=== PATIENT | male | born 2000 | race Caucasian/White ===

== ENCOUNTER 2024-07-29 22:42 | Emergency (ER) | payer BC, SELFPAY ==
[2024-07-29 22:58] LABS: Urine Albumin 2+ (Neg - Trace); Urine Bilirubin Negative (Negative); Urine Character Cloudy (Clear); Urine Color Yellow; Urine Glucose Negative (Negative); Urine Ketone Negative (Negative); Urine Leukocyte 1+ (Negative); Urine Nitrite Negative (Negative); Urine Occult Blood 4+ (Negative); Urine Urobilinogen Negative (Neg - 1+)
[2024-07-29 23:06] LABS: Urine Amorphous Seen; Urine Red Blood Cell 50-60 /HPF (0-2); Urine Squamous Cell 0-2 /LPF (Few)
[2024-07-29 23:07] LABS: Urine White Cell 0-2 /HPF (0-5)
[2024-07-29 23:09] LABS: Urine Bacteria Moderate (Negative)
--- NOTE | 2024-07-29 23:25 | ED.GENMED ---
History of Present Illness
General
Chief Complaint: Male Genito-Urinary Symptoms
Time Seen by Provider: 07/29/24 23:25
History of Present Illness
History of Present Illness:
TIME OF INITIAL ENCOUNTER: 11:30 PM
HPI: The patient presents with gross hematuria. This has not caused any urinary retention. Of note, the patient did have a lot of sexual intercourse with his girlfriend recently and also had pain during intercourse last night. He has no flank
pain. He has no fevers. He has no discharge from the meatus but states that his urethra feels inflamed.
EXAM:
GENERAL: Well appearing in no distress
HEENT: Moist oral mucosa
ABDOMEN: Soft with no peritoneal signs, no tenderness, no CVA tenderness
: No testicular tenderness, no epididymal tenderness, no discharge at the meatus
NEUROLOGIC: Excellent strength all extremities, no coordination deficits
PSYCHIATRIC: Appropriate mental status, normal insight and judgement
EXTREMITIES: Nontender, no edema, moves all extremities equally
SKIN: No rash, no lesions
NUMBER AND COMPLEXITY OF PROBLEMS ADDRESSED AT THE ENCOUNTER
� Chronic conditions affecting care: History of prostatitis
� Acute Exacerbation and/or Progression of Chronic Illness: This is an acute problem
� Differential Diagnosis includes: Urethritis, STI; no evidence for torsion/epididymitis based on exam
AMOUNT AND/OR COMPLEXITY OF DATA TO BE REVIEWED AND ANALYZED
� I performed an independent evaluation of and my interpretation is:
EKG:
CT:
X-rays:
Laboratory Studies: Urinalysis shows 4+ blood with no clear evidence of infection
Other: GC chlamydia PCR by urine pending
� Review of other/old records: No old records available for review
� Clinical information was obtained by an independent historian: Sister was present at bedside
� Prescriptions/Medications Considered but not given: Offered and considered empiric treatment for STI however the patient declines and wants to wait on the testing.
� Further testing considered but not performed: No clear indication for CT imaging as the pain appears to be localized to the urethra and he has no CVA tenderness
RISK OF COMPLICATIONS AND/OR MORBIDITY OR MORTALITY OF PATIENT MANAGEMENT
� Social determinants of health affecting care: Lives at home
� Discussion with other providers:
� Escalation of care including admission/observation vs risk of discharge considered: I have relatively low suspicion for STI. Gross and microscopic hematuria noted. He is to follow-up with urology. He has been able to void
with only some small amounts of blood noted at time. His most recent urination showed minimal if any blood.
ANY OTHER UPDATES:
Phy Exam
Physical Exam
Physical Exam:
See HPI
Course
Orders/Labs/Results
Orders:
Orders
07/29/24 22:51
Urinalysis Reflex To Culture Urgent
Date Specimen was Collected: 07/29/24
Time Specimen was Collected: 22:45
Urine Microscopic Reflex Cult Urgent
Urine Culture Urgent
SE Source: U
Specimen Description:
Date Specimen was Collected: 07/29/24
Time Specimen was Collected: 22:45
07/29/24 23:38
Add On- LAB Urgent
Tests Added?: GC/Chlam by PCR - urine
Abnormal Lab Results
07/29/24
22:51
Ur Occult Blood Reflex 4+ A
(Negative)
Leukocyte Esterase Rfl 1+ A
(Negative)
Urine RBC 50-60 A /HPF
(0-2)
Urine Bacteria (Reflex) Moderate A
(Negative)
Urine Albumin (Reflex) 2+ A
(Neg - Trace)
Vital Signs
Blood pressure: 120/60
Initial and Last Documented VS:
Initial Vital Signs
Temp Pulse Resp Pulse Ox
37.0 C 76 16 99
07/29/24 22:43 07/29/24 22:43 07/29/24 22:43 07/29/24 22:43
Last Documented Vital Signs
Temp Pulse Resp BP Pulse Ox
37.0 C 76 16 120/60 99
07/29/24 22:43 07/29/24 22:43 07/29/24 22:43 07/29/24 23:46 07/29/24 22:43
*Critical Care Note
Total Time (30-74mins, 75-104mins- exclusive of procedures): Not Applicable
ED Attending Note
-
Portions of this chart may have been created with voice recognition software.� Occasional wrong word or��sound alike� substitutions may have occurred due to the inherent limitations of voice recognition software.
Discharge Plan
Departure
Patient Disposition: Home (Routine Discharge)
Date of Disposition: 07/29/24
Time of Disposition: 23:41
Patient with high blood pressure during this ER visit?: No
Discharge Problem:
Hematuria
Instructions: Blood in the Urine (Hematuria), Adult (DC)
Referrals:
Blaine Mares Jr., MD [Active] - Follow up in 2-3 days
Activity Restrictions/Additional Instructions:
Urinalysis shows no sign of infection but does show signs of blood. I recommend that you follow-up with urology such as Dr. Mares. You had no tenderness over the kidneys to suggest a kidney stone. STI testing is currently pending. You will only
be notified if the test is abnormal.
Interventions
Interventions:
*Risk Screen - Suicide Last Done: 07/29/24 22:43
*General Assessment Last Done: 07/30/24 00:08
*Neglect/Abuse Screening Last Done: 07/29/24 22:43
*ED- Fall Risk Assessment Last Done: 07/30/24 00:07
*ED COVID-19 Vaccine History Last Done: 07/30/24 00:07
*Nursing Disposition Last Done: 07/30/24 00:09
ED-Male Genitourinary Assessment Last Done: 07/30/24 00:07
Discharge Date and Time
Discharge Date/Time: 07/30/24 00:06
Print Language: [place]
[2024-07-30 00:06] VITALS: BMI 22.8
== END 2024-07-30 00:06 | disposition home or self-care (01) ==
LOC: EMR 22:42
PROVIDERS: EMERGENCY PHYSICIAN Emergency Medicine
DX: R31.0 Gross hematuria (principal)
CPT/HCPCS: 99283; 81003; 81015; 87086; 87491; 87591

== ENCOUNTER → 2024-08-11 13:43 | Outpatient (REF) | payer BC, SELFPAY | LOC: HWRAD 13:43 | PROVIDERS: ATTENDING PHYSICIAN Urology | DX: R31.0 Gross hematuria (principal) | CPT/HCPCS: 74176 ==

== ENCOUNTER → 2024-09-22 15:31 | Outpatient (REF) | payer BC, SELFPAY | LOC: HWRAD 15:31 | PROVIDERS: ATTENDING PHYSICIAN Urology; FAMILY PHYSICIAN Hospitalist | DX: R31.0 Gross hematuria (principal); R36.1 Hematospermia | CPT/HCPCS: 76870; 93976 ==